=== PATIENT | female | born 1990 | race Caucasian/White ===

== ENCOUNTER 2023-06-11 09:13 | Outpatient (CLI) | payer BC, SELFPAY ==
--- NOTE | 2023-06-11 09:15 | US_ITS ---
Patient: STEPHANY PARKER Facility:?[facility] Patient ID:?[id number] Site Patient ID:?[id number]. Site :?1990 Study:?US-OB Pelvis TV dating/viability-06/11/2023 10:03:17 AM Ordering Physician:DEMARIO Final Report: INDICATION: Breast-feeding; infrequent cycles; dating and viability. COMPARISON: None. TECHNIQUE: Transvaginal OB ultrasound. FINDINGS: Intrauterine gestational sac measuring 1.6 cm in diameter. The yolk sac is identified measuring 0.9 mm and appears within normal limits. No pole or cardiac activity identified. Right ovary measures 4.3 x 2.7 x 2.2 cm and the left ovary measures 2.3 x 1.5 x 1.3 cm. A 2.1 x 2.3 x 2.6 cm corpus luteum cyst right ovary. A 1.2 x 0.3 x 0.4 cm subchorionic hemorrhage. IMPRESSION: 1. Intrauterine gestational sac with a mean gestational sac diameter measures 1.6 cm corresponding to 6 weeks and 3 days of gestational age. 2. Yolk sac is identified measuring 0.9 mm and within normal limits. 3. No pole or cardiac activity identified at this time; could be too early; suggest follow-up. 4. A 1.2 x 0.3 x 0.4 cm subchorionic hemorrhage. Dictated by Billy Vanessa MD @ 06/12/2023 7:15:05 AM Signed by:?Billy Vanessa MD @06/12/2023 7:15:05 AM (Electronic Signature)
== END 2023-06-11 09:14 | disposition home or self-care (01) ==
LOC: US 09:13
PROVIDERS: PCP Physician Assistant; Visit Provider Physician Assistant
DX: Z34.91 Encounter for supervision of normal pregnancy, unspecified, first trimester (principal); O20.9 Hemorrhage in early pregnancy, unspecified; O36.8310 Maternal care for abnormalities of the fetal heart rate or rhythm, first trimester, not applicable or unspecified; Z3A.01 Less than 8 weeks gestation of pregnancy
CPT/HCPCS: 76817

== ENCOUNTER 2023-06-23 15:01 | Outpatient (CLI) | payer BC, SELFPAY ==
--- NOTE | 2023-06-23 15:00 | US_ITS ---
Patient: STEPHANY PARKER Facility:?[facility] Patient ID:?[id number] Site Patient ID:?[id number]. Site :?1990 Study:?US-OB Pelvis TV OB<[id number]-06/23/2023 4:06:37 PM Ordering Physician:Jen June Final Report: INDICATION: Follow-up possible viability COMPARISON: 06/11/2023 TECHNIQUE: Real-time rivera-scale imaging of the pelvis was performed. FINDINGS: Intrauterine gestational sac measures 2.0 cm, 6 weeks 3 days. Yolk sac measures 2.2 millimeters. No pole. No pelvic free fluid. Right ovarian cyst measures 2.5 x 1.6 x 2.2 cm. Normal left ovary. IMPRESSION: Nonviable . No pole. Dictated by Darell Nixon MD @ 06/25/2023 6:38:16 AM Signed by:?Darell Nixon MD @06/25/2023 6:38:16 AM (Electronic Signature)
== END 2023-06-23 15:02 | disposition home or self-care (01) ==
LOC: US 15:02
PROVIDERS: PCP Physician Assistant; Visit Provider Physician Assistant
DX: Z34.91 Encounter for supervision of normal pregnancy, unspecified, first trimester (principal); Z3A.01 Less than 8 weeks gestation of pregnancy
CPT/HCPCS: 76817; 86850; 86900; 86901